=== PATIENT | female | born 1975 | race African-American/Black ===

== ENCOUNTER 2021-02-19 01:10 | Emergency (ER) | payer MEDICAID ==
[~2021-02-19] VITALS: Ht 170.2 cm; Wt 87.0 kg
[2021-02-19] MEDS: HYDROCODONE/ACETAMINOPHEN 5/325MG TABLET PO STA ×2 (02:31→04:34)
[2021-02-19 02:32] LABS: BASOPHILS % 0.5 % (0.0-2.0); HEMATOCRIT. 41.1 % (36.0-48.0); HEMOGLOBIN. 13.6 g/dL (12.0-16.0); LYMPHOCYTES % 21.7 % (20.0-50.0); MEAN CORPUSCULAR HEMOGLOBIN 28.6 pg (28.0-32.0); MEAN CORPUSCULAR VOLUME 86.6 fL (81.0-99.0); MEAN PLATELET VOLUME 9.1 fl (7.4-10.4); MONOCYTES % 8.1 % (2.0-8.0); NEUTROPHILS % 67.7 % (40.0-76.0); PLATELET 277 x1000/uL (130-400); RED BLOOD CELL COUNT 4.75 mill/uL (4.2-5.4); RED CELL DISTRIBUTION WIDTH 13.1 % (11.6-14.6)
[2021-02-19 02:38] LABS: CHLORIDE 103 mEq/L (98-107)
[2021-02-19 02:39] LABS: HCG SCREEN NEGATIVE
[2021-02-19 04:17] LABS: CLARITY URINE CLEAR (CLEAR); COLOR URINE YELLOW (YELLOW); KETONES URINE NEGATIVE (NEGATIVE); LEUKOCYTE ESTERASE URINE NEGATIVE (NEGATIVE); NITRITE URINE NEGATIVE (NEGATIVE); OCCULT BLOOD URINE TRACE (NEGATIVE); PH URINE 6.5 (4.5-8.0); PROTEIN URINE NEGATIVE (NEGATIVE); SPECIFIC GRAVITY URINE 1.011 (1.005-1.030)
[2021-02-19] MEDS ORDERED: IBUP-2029 MT (04:50)
[2021-02-19] MEDS ORDERED: POTASSIUM CHLORIDE 20MEQ TABLET SR PO NR (05:00)
[2021-02-19 05:05] VITALS: BP 143/60
== END 2021-02-19 05:17 | disposition home or self-care (01) ==
LOC: ER 01:10
DX: D25.9 Leiomyoma of uterus, unspecified (principal); E87.6 Hypokalemia; I10 Essential (primary) hypertension
CPT/HCPCS: 36415; 76830; 76856; 80053; 81003; 84703; 85025; 93005; 99285